=== PATIENT | female | born 1985 | race African-American/Black ===

== ENCOUNTER 2017-09-03 02:43 | Emergency (ER) | payer SELFPAY ==
[2017-09-03] MEDS ORDERED: Ketorolac Tromethamine 30 MG/ML VIAL ONE (03:39)
== END 2017-09-03 05:18 | disposition home or self-care (01) ==
LOC: ERS 02:43
DX: M54.2 Cervicalgia (principal); R03.0 Elevated blood-pressure reading, without diagnosis of hypertension; F17.210 Nicotine dependence, cigarettes, uncomplicated
CPT/HCPCS: 81025; 96372; J1885